=== PATIENT | male | born 1970 | race Two or more races ===

== ENCOUNTER 2021-12-08 12:39 | Outpatient (CLI) | payer OTHER ==
[~2021-12-08] VITALS: Ht 157.5 cm; Wt 81.6 kg
[2021-12-08 14:05] LABS: BASOPHILS # (AUTO) 0.1 X10'3 (0-0.2); BASOPHILS % (AUTO) 0.8 % (0-1); EOSINOPHILS # (AUTO) 0.3 X10'3 (0-0.9); EOSINOPHILS % (AUTO) 2.7 % (0-6); LYMPHOCYTES # (AUTO) 3.1 X10'3 (1.1-4.8); LYMPHOCYTES % (AUTO) 31.1 % (21-51); MEAN CORPUSCULAR HEMOGLOBIN 31.1 PG (27.0-31.0); MEAN CORPUSCULAR HGB CONC 34.6 g/dL (33.0-36.5); MEAN CORPUSCULAR VOLUME 89.8 FL (78-98); MEAN PLATELET VOLUME 9.2 FL (7.4-10.4); MONOCYTES # (AUTO) 0.7 X10'3 (0-0.9); MONOCYTES % (AUTO) 6.6 % (2-12); NEUTROPHILS # (AUTO) 5.8 X10'3 (1.8-7.7); NEUTROPHILS % (AUTO) 58.8 % (42-75); PRE OP HEMATOCRIT 47.7 % (42.0-52.0); PRE OP HEMOGLOBIN 16.5 g/dL (14.0-17.9); PRE OP PLATELET COUNT 227 X10'3 (140-440); RED BLOOD COUNT 5.31 X10'6 (4.70-6.10); RED CELL DISTRIBUTION WIDTH 13.3 % (11.5-14.5)
[2021-12-08 14:28] LABS: HEMOGLOBIN A1C 8.3 % (4.5-6.2)
[2021-12-08 14:32] LABS: ALBUMIN 3.8 G/DL (3.4-5.0); ALBUMIN/GLOBULIN RATIO 1.1 (1.1-1.5); ALKALINE PHOSPHATASE 95 IU/L (46-116); BLOOD UREA NITROGEN 14 MG/DL (7-18); BUN/CREATININE RATIO 16.3 (5.4-32.0); CHLORIDE 103 MMOL/L (99-107); CREATININE 0.86 MG/DL (0.60-1.10); PRE OP ALT 23 U/L (30-65); PRE OP ANION GAP 9 (8-16); PRE OP AST 15 U/L (10-37); PRE OP BILIRUB, TOTAL 0.6 MG/DL (0.0-1.0); PRE OP GLUCOSE 110 MG/DL (70-104); PRE OP POTASSIUM 3.9 MMOL/L (3.4-5.1); PRE OP SODIUM 139 MMOL/L (135-145); TOTAL PROTEIN 7.3 G/DL (6.4-8.2); eGFR > 90 ML/MIN
[2021-12-08] MEDS ORDERED: FENO145T38 PO (17:31)
[2021-12-08] MEDS ORDERED: LEVO200T8 PO (17:31)
[2021-12-08] MEDS ORDERED: INSU100I71 SQ (17:31)
[2021-12-08] MEDS ORDERED: INSU100C10 SQ (17:31)
[2021-12-14] MEDS ORDERED: ringers solution, lacted 1,000 ML IV SCH (05:00)
[2021-12-14] MEDS ORDERED: ceFAZolin inj. 2,000 MG in dextrose 5%-water 100 ML IV ONE (05:30)
[2021-12-14] MEDS ORDERED: vancomycin 1,500 MG in NS 300ml IV soln IV ONE (05:30)
[2021-12-14] MEDS ORDERED: tranexamic acid 650mg tablet PO ONE (05:30)
[2021-12-14] MEDS ORDERED: famotidine 20mg tablet PO ONE (05:30)
== END 2021-12-08 23:59 | disposition home or self-care (01) ==
LOC: LAB 12:39 → EDBD 12-14 08:45 → EDSTATUS 12-14 08:45
PROVIDERS: ATTEND Orthopaedic Surgery
DX: M17.31 Unilateral post-traumatic osteoarthritis, right knee (principal); Z72.0 Tobacco use
CPT/HCPCS: 36415; 71046; 80053; 83036; 84443; 85025; 87081; 87811; J0690; J3370; J7040; J7060; J7120

== ENCOUNTER 2022-05-17 13:02 | Outpatient (CLI) | payer OTHER ==
[~2022-05-17 13:02] MED LIST: FENO145T38 PO; INSU100C10 SQ; INSU100I71 SQ; LEVO200T8 PO
[2022-05-17 14:02] LABS: BASOPHILS # (AUTO) 0.1 X10'3 (0-0.2); BASOPHILS % (AUTO) 0.9 % (0-1); EOSINOPHILS # (AUTO) 0.4 X10'3 (0-0.9); EOSINOPHILS % (AUTO) 4.4 % (0-6); LYMPHOCYTES # (AUTO) 2.5 X10'3 (1.1-4.8); LYMPHOCYTES % (AUTO) 27.4 % (21-51); MEAN CORPUSCULAR HEMOGLOBIN 30.3 PG (27.0-31.0); MEAN CORPUSCULAR HGB CONC 34.3 g/dL (33.0-36.5); MEAN CORPUSCULAR VOLUME 88.3 FL (78-98); MEAN PLATELET VOLUME 8.7 FL (7.4-10.4); MONOCYTES # (AUTO) 0.6 X10'3 (0-0.9); NEUTROPHILS # (AUTO) 5.6 X10'3 (1.8-7.7); NEUTROPHILS % (AUTO) 60.3 % (42-75); PRE OP HEMATOCRIT 46.8 % (42.0-52.0); PRE OP PLATELET COUNT 297 X10'3 (140-440); RED BLOOD COUNT 5.29 X10'6 (4.70-6.10); RED CELL DISTRIBUTION WIDTH 13.2 % (11.5-14.5)
[2022-05-17 14:11] LABS: ALBUMIN 3.8 G/DL (3.4-5.0); ALBUMIN/GLOBULIN RATIO 1.1 (1.1-1.5); ALKALINE PHOSPHATASE 93 IU/L (46-116); BLOOD UREA NITROGEN 17 MG/DL (7-18); BUN/CREATININE RATIO 19.1 (5.4-32.0); CALCIUM 8.9 MG/DL (8.5-10.1); CHLORIDE 106 MMOL/L (99-107); CREATININE 0.89 MG/DL (0.60-1.10); PRE OP ALT 33 U/L (30-65); PRE OP ANION GAP 8 (8-16); PRE OP AST 26 U/L (10-37); PRE OP BILIRUB, TOTAL 0.6 MG/DL (0.0-1.0); PRE OP GLUCOSE 183 MG/DL (70-104); PRE OP SODIUM 140 MMOL/L (135-145); TOTAL CARBON DIOXIDE 26.4 MMOL/L (24-32); TOTAL PROTEIN 7.4 G/DL (6.4-8.2); eGFR 90 ML/MIN
[2022-05-17] MEDS ORDERED: IBUPROFEN PO (15:26)
[2022-05-17 16:29] LABS: HEMOGLOBIN A1C 7.8 % (4.5-6.2)
== END 2022-05-17 23:59 | disposition home or self-care (01) ==
LOC: LAB 13:02 → EDSTATUS 05-23 10:30
PROVIDERS: ATTEND Orthopaedic Surgery
DX: Z01.812 Encounter for preprocedural laboratory examination (principal); M17.11 Unilateral primary osteoarthritis, right knee
CPT/HCPCS: 36415; 80053; 83036; 85025; 87081

== ENCOUNTER 2023-02-28 05:30 | Day surgery (SDC) | payer OTHER ==
[2023-02-22 15:42] LABS: BASOPHILS # (AUTO) 0.1 X10'3 (0-0.2); BASOPHILS % (AUTO) 0.8 % (0-1); EOSINOPHILS # (AUTO) 0.2 X10'3 (0-0.9); EOSINOPHILS % (AUTO) 2.2 % (0-6); LYMPHOCYTES # (AUTO) 3.5 X10'3 (1.1-4.8); LYMPHOCYTES % (AUTO) 34.8 % (21-51); MEAN CORPUSCULAR HEMOGLOBIN 30.3 PG (27.0-31.0); MEAN CORPUSCULAR HGB CONC 33.4 g/dL (33.0-36.5); MEAN CORPUSCULAR VOLUME 90.8 FL (78-98); MEAN PLATELET VOLUME 9.4 FL (7.4-10.4); MONOCYTES # (AUTO) 0.6 X10'3 (0-0.9); MONOCYTES % (AUTO) 6.4 % (2-12); NEUTROPHILS # (AUTO) 5.7 X10'3 (1.8-7.7); NEUTROPHILS % (AUTO) 55.8 % (42-75); PRE OP HEMOGLOBIN 17.4 g/dL (14.0-17.9); PRE OP PLATELET COUNT 268 X10'3 (140-440); PRE OP WHITE BLOOD COUNT 10.1 10'3 (4.8-10.8); RED BLOOD COUNT 5.73 X10'6 (4.70-6.10); RED CELL DISTRIBUTION WIDTH 13.4 % (11.5-14.5)
[2023-02-22 15:56] LABS: HEMOGLOBIN A1C 6.5 % (4.5-6.2)
[2023-02-22 16:03] LABS: ALBUMIN 3.9 G/DL (3.4-5.0); ALBUMIN/GLOBULIN RATIO 1.1 (1.1-1.5); ALKALINE PHOSPHATASE 85 IU/L (46-116); BLOOD UREA NITROGEN 7 MG/DL (7-18); BUN/CREATININE RATIO 8.4 (10.0-20.0); CHLORIDE 105 MMOL/L (99-107); CREATININE 0.83 MG/DL (0.60-1.10); PRE OP ALT 29 U/L (30-65); PRE OP ANION GAP 9 (8-16); PRE OP AST 27 U/L (10-37); PRE OP BILIRUB, TOTAL 0.5 MG/DL (0.0-1.0); PRE OP POTASSIUM 3.9 MMOL/L (3.4-5.1); PRE OP SODIUM 139 MMOL/L (135-145); THYROID STIMULATING HORMONE 0.68 ulU/ml (0.34-4.50); TOTAL CARBON DIOXIDE 25.1 MMOL/L (24-32); TOTAL PROTEIN 7.6 G/DL (6.4-8.2); eGFR > 90 ML/MIN
[2023-02-22 16:12] LABS: PRE OP GLUCOSE 59 MG/DL (70-104)
[2023-02-28] VITALS (22 sets, daily range): BP systolic 107–149; BP diastolic 55–81; PULSE 53–69; RESP 10–18; TEMP 97.7–98.6; O2SAT 96–100
[~2023-02-28] VITALS: Ht 157.5 cm; Wt 84.9 kg
[~2023-02-28 05:30] MED LIST changes: +LEVO150T8 PO; -LEVO200T8 PO; +NALT50TA PO; +VARE0.5T6 PO; +famotidine 20mg tablet PO ONE
[2023-02-28] MEDS: ringers solution, lacted 1,000 ML IV SCH ×2 (06:01→14:17)
[2023-02-28] MEDS ORDERED: BUPIVACAINE/MELOXICAM 14 ML VIAL IL ONE ×2 (06:38→10:21)
[2023-02-28] MEDS ORDERED: insulin regular, human 10 units/0.1 ml syringe SQ ONE (06:40)
[2023-02-28] MEDS ORDERED: tranexamic acid 650mg tablet PO ONE (07:37)
[2023-02-28] MEDS ORDERED: cefazolin 2gm/D5W 100mL 100 ML IV ONE (07:37)
[2023-02-28] MEDS ORDERED: VANCOMYCIN 1,500MG in normal saline IV soln 300 ML IV ONE (07:40)
[2023-02-28] MEDS ORDERED: fentaNYL/PF 50MCG/1 ML 2ML syringe ONE (09:16)
[2023-02-28] MEDS ORDERED: MIDAZolam 1 MG/ML 5ML VIAL ONE (09:16)
[2023-02-28 09:31] LABS: ISTAT ANION GAP 8 (8-12); ISTAT BUN 13 mg/dL (7-18); ISTAT CL 107 mmol/L (99-107); ISTAT CREATININE 0.7 mg/dL (0.8-1.3); ISTAT GLUCOSE 136 mg/dL (70-104); ISTAT HGB 15.6 g/dl (14.0-17.9); ISTAT Hct 46 %PCV (42-52); ISTAT IONIZED CALCIUM 1.08 mmol/L (1.03-1.32); ISTAT K 4.5 mmol/L (3.5-5.1); ISTAT NA 139 mmol/L (135-145); ISTAT TOTAL CO2 24 mmol/L (24-32); ISTAT eGFR > 90 ML/MIN; POC BUN/CREATININE RATIO 18.6 (5.4-32.0)
[2023-02-28] MEDS ORDERED: propofol inj 20 ML IV ONE (09:46)
[2023-02-28] MEDS ORDERED: ROPIVAcaine 0.5% (5mg/ml) 30ml vial ONE (09:46)
[2023-02-28] MEDS ORDERED: proCHLORperazine 10 MG/2 ml inj IV PRN (10:15)
[2023-02-28] MEDS ORDERED: morphine 4 MG/ML inj SYRINge IV PRN (10:15)
[2023-02-28] MEDS ORDERED: morphine 2 MG/ML inj. syringe IV PRN ×2 (10:15→11:20)
[2023-02-28] MEDS ORDERED: ondansetron/PF 4mg/2ml inj IV PRN ×2 (10:15→11:20)
[2023-02-28] MEDS ORDERED: ringers solution, lacted 1,000 ML IV SCH (10:15)
[2023-02-28] MEDS ORDERED: enalaprilat dihydrate 2.5mg/2ml vial IV PRN (10:15)
[2023-02-28] MEDS ORDERED: ROPIVAcaine 0.2% (10 MG/5 ML) BOLUS INJECTION ADDCANAL PRN (10:15)
[2023-02-28] MEDS ORDERED: labetalol 20mg/4ml (5mg/ml) syringe IV PRN (10:15)
[2023-02-28] MEDS ORDERED: meperidine/PF 25mg/ml syringe IV PRN ×3 (10:15)
[2023-02-28] MEDS ORDERED: HYDROmorphone/PF 0.2 MG/ML SYRINGE IV PRN (11:20)
[2023-02-28] MEDS ORDERED: dexamethasone sod phosphate 4mg/ml inj. ONE (11:24)
[2023-02-28] MEDS: ROPIVAcaine 0.2%/PF PUMP/bolus 545 ML ADDCANAL SCH ×2 (13:23→13:24)
[2023-02-28] MEDS ORDERED: glucagon, human recombinant 1mg kit SUBCUT PRN (13:45)
[2023-02-28] MEDS ORDERED: dextrose 50%-water 50ml dispensing syringe IV PRN ×2 (13:45)
[2023-02-28] MEDS ORDERED: MESSAGE TO PHARMACY PO ONE (13:45)
[2023-02-28] MEDS ORDERED: DEXTROSE 15 GM of carb/4 tabs (each vial/BOTTLE has 4 tablets) PO PRN ×2 (13:45)
[2023-02-28] MEDS ORDERED: insulin Lispro (HumaLOG) vial - multi-dose SQ SCH (13:45)
[2023-02-28] MEDS ORDERED: dextrose 5%-1/2 normal saline 1,000 ML IV SCH (13:50)
[2023-02-28] MEDS: insulin Lispro (HumaLOG) vial - multi-dose SQ SCH ×2 (14:17→20:54)
[2023-02-28] MEDS: HYDROcodone/acetaminophen 10/325mg tab PO PRN (15:20)
[2023-02-28] MEDS ORDERED: pantoprazole 40mg Tablet.DR PO STA (17:17)
[2023-02-28] MEDS: sodium chloride 0.45% 1,000 ML IV SCH (17:45)
[2023-02-28 19:01] LABS: BASOPHILS # (AUTO) 0.1 X10'3 (0-0.2); BASOPHILS % (AUTO) 0.3 % (0-1); EOSINOPHILS % (AUTO) 0.1 % (0-6); HEMATOCRIT 44.9 % (42.0-52.0); HEMOGLOBIN 15.2 g/dl (14.0-17.9); LYMPHOCYTES # (AUTO) 1.1 X10'3 (1.1-4.8); LYMPHOCYTES % (AUTO) 6.2 % (21-51); MEAN CORPUSCULAR HEMOGLOBIN 30.5 PG (27.0-31.0); MEAN CORPUSCULAR HGB CONC 33.8 g/dL (33.0-36.5); MEAN CORPUSCULAR VOLUME 90.4 FL (78-98); MEAN PLATELET VOLUME 9.6 FL (7.4-10.4); MONOCYTES # (AUTO) 0.7 X10'3 (0-0.9); MONOCYTES % (AUTO) 3.9 % (2-12); NEUTROPHILS # (AUTO) 16.5 X10'3 (1.8-7.7); NEUTROPHILS % (AUTO) 89.5 % (42-75); PLATELET COUNT 227 X10'3 (140-440); RED BLOOD COUNT 4.97 X10'6 (4.70-6.10); RED CELL DISTRIBUTION WIDTH 12.9 % (11.5-14.5); WHITE BLOOD COUNT 18.4 X10'3 (4.5-11.0)
[2023-02-28 19:10] LABS: PROTHROMBIN TIME 10.5 SECONDS (9.0-12.0)
[2023-02-28 19:15] LABS: ALANINE AMINOTRANSFERASE 34 U/L (12-78); ALBUMIN 3.4 G/DL (3.4-5.0); ALBUMIN/GLOBULIN RATIO 1.1 (1.1-1.5); ALKALINE PHOSPHATASE 74 IU/L (46-116); ANION GAP 10 (8-16); ASPARTATE AMINO TRANSFERASE 26 U/L (10-37); BILIRUBIN,TOTAL 0.8 MG/DL (0.1-1.0); BLOOD UREA NITROGEN 13 MG/DL (7-18); BUN/CREATININE RATIO 13.7 (10.0-20.0); CALCIUM 8.2 MG/DL (8.5-10.1); CHLORIDE 102 MMOL/L (99-107); CREATININE 0.95 MG/DL (0.60-1.10); GLUCOSE 286 MG/DL (70-104); POTASSIUM 5.2 MMOL/L (3.5-5.1); SODIUM 134 MMOL/L (135-145); TOTAL CARBON DIOXIDE 21.6 MMOL/L (24-32); TOTAL PROTEIN 6.6 G/DL (6.4-8.2); eCRCL 69 ML/MIN; eGFR 83 ML/MIN
[2023-02-28] MEDS: VARENICLINE TARTRATE 1 MG PO SCH (20:00)
[2023-02-28] MEDS: naltrexone 50mg tablet PO SCH (20:57)
[2023-02-28] MEDS ORDERED: fenofibrate 145mg tablet PO SCH (21:00)
[2023-02-28] MEDS ORDERED: insulin glargine (Lantus) pen - multi-dose SQ SCH ×2 (21:00)
[2023-03-01] MEDS: sodium chloride 0.45% 1,000 ML IV SCH (01:54)
[2023-03-01 02:00] VITALS: BP 130/72; PULSE 87; RESP 20; TEMP 99.1; O2SAT 96
[2023-03-01] MEDS: HYDROcodone/acetaminophen 10/325mg tab PO PRN (05:30)
[2023-03-01] MEDS ORDERED: vancomycin/NS 1 GM in NS 250 ML IV ONE (05:30)
[2023-03-01 06:56] VITALS: BP 145/75; PULSE 85; RESP 16; TEMP 98.8; O2SAT 95
[2023-03-01] MEDS ORDERED: levoTHYROXINE 75mcg tablet PO SCH (07:00)
[2023-03-01] MEDS ORDERED: pantoprazole 40mg Tablet.DR PO SCH (07:30)
[2023-03-01] MEDS: VARENICLINE TARTRATE 1 MG PO SCH (07:35)
[2023-03-01 08:00] VITALS: RESP 16; O2SAT 96
[2023-03-01] MEDS: insulin Lispro (HumaLOG) vial - multi-dose SQ SCH ×2 (08:00→13:30)
[2023-03-01] MEDS: naltrexone 50mg tablet PO SCH ×2 (08:00→10:00)
[2023-03-01 09:57] LABS: BASOPHILS # (AUTO) 0.1 X10'3 (0-0.2); BASOPHILS % (AUTO) 0.6 % (0-1); EOSINOPHILS # (AUTO) 0.1 X10'3 (0-0.9); EOSINOPHILS % (AUTO) 0.6 % (0-6); HEMATOCRIT 38.6 % (42.0-52.0); HEMOGLOBIN 13.1 g/dl (14.0-17.9); LYMPHOCYTES # (AUTO) 2.8 X10'3 (1.1-4.8); LYMPHOCYTES % (AUTO) 20.3 % (21-51); MEAN CORPUSCULAR HEMOGLOBIN 30.5 PG (27.0-31.0); MEAN CORPUSCULAR HGB CONC 33.9 g/dL (33.0-36.5); MONOCYTES # (AUTO) 1.3 X10'3 (0-0.9); MONOCYTES % (AUTO) 9.3 % (2-12); NEUTROPHILS # (AUTO) 9.7 X10'3 (1.8-7.7); NEUTROPHILS % (AUTO) 69.2 % (42-75); PLATELET COUNT 214 X10'3 (140-440); RED BLOOD COUNT 4.29 X10'6 (4.70-6.10); RED CELL DISTRIBUTION WIDTH 12.6 % (11.5-14.5)
[2023-03-01 10:17] VITALS: BP 135/76; PULSE 82; RESP 16; TEMP 98.4; O2SAT 96
[2023-03-01 10:23] LABS: ALANINE AMINOTRANSFERASE 25 U/L (12-78); ALKALINE PHOSPHATASE 67 IU/L (46-116); ANION GAP 8 (8-16); ASPARTATE AMINO TRANSFERASE 18 U/L (10-37); BILIRUBIN,TOTAL 1.1 MG/DL (0.1-1.0); BLOOD UREA NITROGEN 16 MG/DL (7-18); CALCIUM 8.3 MG/DL (8.5-10.1); CHLORIDE 100 MMOL/L (99-107); GLUCOSE 390 MG/DL (70-104); POTASSIUM 4.3 MMOL/L (3.5-5.1); SODIUM 132 MMOL/L (135-145); TOTAL CARBON DIOXIDE 23.7 MMOL/L (24-32); eCRCL 66 ML/MIN; eGFR 78 ML/MIN
[2023-03-01] MEDS ORDERED: insulin Lispro (HumaLOG) vial - multi-dose SQ SCH ×2 (13:00→14:33)
[2023-03-01] MEDS ORDERED: insulin glargine (Lantus) pen - multi-dose SQ SCH ×2 (14:32→21:00)
[2023-03-01] MEDS ORDERED: enoxaparin 40mg/0.4ml syringe SQ SCH (20:00)
== END 2023-03-01 14:00 | disposition home or self-care (01) ==
LOC: PAS 05:30 → ORTHO 4S 17:15 → PAS 03-01 14:00
PROVIDERS: ATTEND Orthopaedic Surgery
DX: M17.31 Unilateral post-traumatic osteoarthritis, right knee (principal); E03.9 Hypothyroidism, unspecified; E11.9 Type 2 diabetes mellitus without complications; E78.5 Hyperlipidemia, unspecified; J44.9 Chronic obstructive pulmonary disease, unspecified; G89.18 Other acute postprocedural pain; F17.210 Nicotine dependence, cigarettes, uncomplicated; Z72.89 Other problems related to lifestyle; Z79.4 Long term (current) use of insulin; Z79.899 Other long term (current) drug therapy; Z79.01 Long term (current) use of anticoagulants; Z83.3 Family history of diabetes mellitus
CPT/HCPCS: 20985; 27447; 36415; 64448; 71046; 80053; 82947; 82948; 83036; 84443; 85025; 85610; 87081; 93005; 97116; 97161; C1713; C1776; J0690; J1100; J1815; J2250; J2704; J2795; J3010; J3370; J3490; J7030; J7040; J7120; S2900; Z7506; Z7508; Z7512; 80047; 97530; A4215; A6258; A7000; C1758; G0378